=== PATIENT | female | born 1960 | race Caucasian/White ===

== ENCOUNTER 2022-06-17 07:24 | Inpatient (IN) | payer MEDICARE, MEDICAID ==
[~2022-06-17] VITALS: Ht 154.9 cm; Wt 77.6 kg
[2022-06-17] MEDS ORDERED: SODIUM CHLORIDE 0.9% 1000ML BAG (SEPSIS BOLUS) IV ONE (07:45)
[2022-06-17 08:08] LABS: BASOPHILS % 0.3 % (0.0-2.0); HEMATOCRIT. 38.7 % (36.0-48.0); HEMOGLOBIN. 12.9 g/dL (12.0-16.0); LYMPHOCYTES % 15.1 % (20.0-50.0); MEAN CORPUSCULAR HEMOGLOBIN 30.7 pg (28.0-32.0); MEAN CORPUSCULAR VOLUME 91.9 fL (81.0-99.0); MEAN PLATELET VOLUME 6.9 fl (7.4-10.4); MONOCYTES % 7.8 % (2.0-8.0); NEUTROPHILS % 75.8 % (40.0-76.0); PLATELET 274 x1000/uL (130-400); RED BLOOD CELL COUNT 4.21 mill/uL (4.2-5.4); RED CELL DISTRIBUTION WIDTH 13.5 % (11.6-14.6)
[2022-06-17 08:17] LABS: CHLORIDE 107 mEq/L (98-107)
[2022-06-17 08:18] LABS: PROTHROMBIN TIME 10.9 sec (9.6-11.0)
[2022-06-17] MEDS ORDERED: PIPERACILLIN/TAZ 3.375G PREMIX 50 ML IV ONE (09:00)
[2022-06-17] MEDS ORDERED: VANCOMYCIN 1G PREMIX 200 ML IV ONE (09:00)
[2022-06-17] MEDS ORDERED: CLONIDINE 0.1MG TABLET PO PRN (10:45)
[2022-06-17] MEDS ORDERED: ONDANSETRON HCL 4MG/2ML INJ IV PRN (10:45)
[2022-06-17] MEDS ORDERED: ACETAMINOPHEN 325MG TABLET PO PRN (10:45)
[2022-06-17] MEDS ORDERED: MAGNESIUM/ALUMINUM HYDROXIDE/SIMETHICONE 30ML UDC PO PRN (10:45)
[2022-06-17] MEDS ORDERED: NA PHOS,M-B/NA PHOS,DI-BA ENEMA 118ML PR PRN (10:45)
[2022-06-17] MEDS ORDERED: IPRATROPIUM/ALBUTEROL 0.5-3(2.5)MG/3ML NEB NEB PRN (10:45)
[2022-06-17] MEDS ORDERED: NITROGLYCERIN 0.4MG TABLET SL SL PRN (10:45)
[2022-06-17] MEDS ORDERED: KETOROLAC 15MG/ML VIAL IV PRN (10:45)
[2022-06-17] MEDS ORDERED: GUAIFENESIN 200MG/10ML SUGAR FREE UDC PO PRN (10:45)
[2022-06-17] MEDS ORDERED: DOCUSATE SODIUM 100MG CAPSULE PO PRN (10:45)
[2022-06-17] MEDS: SODIUM CHLORIDE 0.9% 1,000 ML IV SCH ×2 (11:46→21:33)
[2022-06-17] MEDS: ENOXAPARIN 40MG/0.4ML SYR SUBCUT SCH (11:50)
[2022-06-17] MEDS: FAMOTIDINE 20MG TABLET PO SCH ×2 (11:50→21:26)
[2022-06-17 12:15] LABS: CLARITY URINE CLEAR (CLEAR); COLOR URINE YELLOW (YELLOW); KETONES URINE NEGATIVE (NEGATIVE); LEUKOCYTE ESTERASE URINE TRACE (NEGATIVE); NITRITE URINE NEGATIVE (NEGATIVE); OCCULT BLOOD URINE NEGATIVE (NEGATIVE); PROTEIN URINE NEGATIVE (NEGATIVE); SPECIFIC GRAVITY URINE 1.016 (1.005-1.030); UROBILINOGEN URINE 0.2 E.U./dL (0.2-1.0)
[2022-06-17 12:41] LABS: *AMPHETAMINES SCREEN URINE NEGATIVE (NEGATIVE); *BARBITURATES SCREEN URINE NEGATIVE (NEGATIVE); *BENZODIAZEPINES SCREEN URINE NEGATIVE (NEGATIVE); *COCAINE SCREEN URINE NEGATIVE (NEGATIVE); CANNABINOID URINE SCREEN NEGATIVE (NEGATIVE); METHADONE URINE SCREEN NEGATIVE (NEGATIVE); OPIATES URINE SCREEN NEGATIVE (NEGATIVE); PHENCYCLIDINE URINE SCREEN NEGATIVE (NEGATIVE)
[2022-06-17 15:50] LABS: T4 FREE 1.44 ng/dL (0.76-1.46)
[2022-06-17 16:12] LABS: FOLIC ACID (FOLATE) SERUM >20 ng/mL ng/mL (>5.38); VITAMIN B12 SERUM 436 pg/mL (211-911)
[2022-06-17] MEDS: ACETAMINOPHEN 325MG TABLET PO PRN (17:33)
[2022-06-17 20:38] LABS: CREATINE KINASE 60 IU/L (26-192); CREATINE KINASE MB FRACTION < 1.0 ng/mL (0.5-3.6)
[2022-06-17 23:19] LABS: CREATINE KINASE 64 IU/L (26-192); CREATINE KINASE MB FRACTION < 1.0 ng/mL (0.5-3.6)
[2022-06-18] VITALS (7 sets, daily range): BP systolic 110–158; BP diastolic 58–96
[2022-06-18] MEDS: ACETAMINOPHEN 325MG TABLET PO PRN ×3 (01:17→17:37)
[2022-06-18] MEDS: ZOLPIDEM TARTRATE 5MG TABLET PO PRN (01:18)
[2022-06-18] MEDS ORDERED: ATOR20TA65 PO (03:47)
[2022-06-18] MEDS ORDERED: LORA-250 PO (03:47)
[2022-06-18] MEDS ORDERED: LAMO25TA9 PO (03:47)
[2022-06-18] MEDS ORDERED: PROP10TA10 PO (03:47)
[2022-06-18] MEDS ORDERED: GABA-532 PO (03:47)
[2022-06-18] MEDS ORDERED: LISI-648 PO (03:47)
[2022-06-18] MEDS ORDERED: PARO10TA74 PO (03:47)
[2022-06-18] MEDS: SODIUM CHLORIDE 0.9% 1,000 ML IV SCH ×2 (06:28→17:00)
[2022-06-18 07:25] LABS: BASOPHILS % 0.3 % (0.0-2.0); EOSINOPHILS % 2.1 % (0.0-5.0); HEMATOCRIT. 33.7 % (36.0-48.0); HEMOGLOBIN. 11.4 g/dL (12.0-16.0); LYMPHOCYTES % 28.5 % (20.0-50.0); MEAN CORPUSCULAR VOLUME 91.9 fL (81.0-99.0); MEAN PLATELET VOLUME 7.5 fl (7.4-10.4); MONOCYTES % 9.7 % (2.0-8.0); NEUTROPHILS % 59.4 % (40.0-76.0); PLATELET 231 x1000/uL (130-400); RED BLOOD CELL COUNT 3.66 mill/uL (4.2-5.4); RED CELL DISTRIBUTION WIDTH 14.1 % (11.6-14.6)
[2022-06-18 08:43] LABS: CHLORIDE 109 mEq/L (98-107)
[2022-06-18] MEDS: FAMOTIDINE 20MG TABLET PO SCH ×2 (08:50→21:57)
[2022-06-18 08:52] LABS: PHOSPHORUS 2.2 mg/dL (2.5-4.9)
[2022-06-18] MEDS: ENOXAPARIN 40MG/0.4ML SYR SUBCUT SCH ×2 (09:00→11:26)
[2022-06-18] MEDS ORDERED: SODIUM BICARBONATE 4% (2.4MEQ) 5ML VIAL IV ONE (10:56)
[2022-06-18] MEDS ORDERED: LIDOCAINE HCL/PF 1% 10 MG/ML 5ML VIAL ONE (10:56)
[2022-06-19] VITALS: BP 140/85
[2022-06-19] MEDS: SODIUM CHLORIDE 0.9% 1,000 ML IV SCH ×2 (00:12→12:29)
[2022-06-19] MEDS: LORAZEPAM 1MG TABLET PO PRN ×2 (00:13→21:00)
[2022-06-19] MEDS: ZOLPIDEM TARTRATE 5MG TABLET PO PRN ×2 (01:31→23:26)
[2022-06-19 04:30] VITALS: BP 115/67
[2022-06-19] MEDS: ACETAMINOPHEN 325MG TABLET PO PRN ×2 (05:03→20:05)
[2022-06-19 08:00] VITALS: BP 123/83
[2022-06-19] MEDS: FAMOTIDINE 20MG TABLET PO SCH ×2 (08:55→20:05)
[2022-06-19 12:00] VITALS: BP 155/90
[2022-06-19] MEDS ORDERED: METHYLPREDNISOLONE SOD SUCC 125 MG/2 ML VIAL IV SCH (12:00)
[2022-06-19 16:00] VITALS: BP 155/90
[2022-06-19 20:00] VITALS: BP 127/85
[2022-06-20] VITALS: BP 136/78
[2022-06-20 04:05] VITALS: BP 127/79
[2022-06-20 06:12] VITALS: BP_SYST 106; BP_SYST 127; BP_DIAS 63; BP_DIAS 79
[2022-06-20] MEDS: ACETAMINOPHEN 325MG TABLET PO PRN (06:37)
[2022-06-20 08:30] VITALS: BP 106/63
[2022-06-20] MEDS: FAMOTIDINE 20MG TABLET PO SCH (09:29)
[2022-06-20] MEDS: ENOXAPARIN 40MG/0.4ML SYR SUBCUT SCH (09:30)
[2022-06-20 12:04] VITALS: BP 133/61
== END 2022-06-20 16:12 | disposition home or self-care (01) | DRG 550 ==
LOC: ER 07:43 → MICUSO 10:15 → EDBEDREQSVC 10:18 → EDBEDREQ 10:18 → SUPCPDRO 10:44 → ENRESERV 22:39 → 6WST 23:55
PROVIDERS: ADMIT Internal Medicine; ATTEND Internal Medicine
PROC: 0S9C3ZZ Drainage of Right Knee Joint, Percutaneous Approach (ICD-10-PCS; principal; 2022-06-18)
PROC: 5A0935A Assistance with Respiratory Ventilation, Less than 24 Consecutive Hours, High Flow/Velocity Cannula (ICD-10-PCS; 2022-06-19)
DX: M00.9 Pyogenic arthritis, unspecified (principal); F31.9 Bipolar disorder, unspecified; Z20.822 Contact with and (suspected) exposure to COVID-19; E78.5 Hyperlipidemia, unspecified; F41.9 Anxiety disorder, unspecified; I10 Essential (primary) hypertension; R00.1 Bradycardia, unspecified; I95.9 Hypotension, unspecified; Z96.651 Presence of right artificial knee joint; Z79.899 Other long term (current) drug therapy; M11.861 Other specified crystal arthropathies, right knee
CPT/HCPCS: 20611; 36415; 71045; 73560; 73562; 80053; 80061; 80305; 81003; 82550; 82553; 82607; 82746; 83036; 83540; 83550; 83605; 83615; 83735; 84100; 84145; 84439; 84443; 84484; 85025; 85651; 87426; 89060; 93005; 93970; 97162; 97166; 99285; J1650; J2543; J2930; J3370; J3490; J7030